=== PATIENT | male | born 1995 | race Caucasian/White ===

== ENCOUNTER 2023-04-28 08:42 | Outpatient (CLI) | payer OTHER, SELFPAY ==
--- NOTE | ~2023-04-28 | XR_ITS ---
LUMBAR SPINE INDICATION: Low back pain TECHNIQUE: 3 views lumbar spine COMPARISON: None FINDINGS: No fracture, subluxation or dislocation. No evidence for spondylolysis or spondylolisthesi s. Vertebral bodies and disk spaces are preserved. IMPRESSION: 1: No significant abnormality of the lumbar spine identified. Reviewed, dictated and finalized at location B. CE MANAGER
== END 2023-04-28 08:43 | disposition home or self-care (01) ==
PROVIDERS: PCP Family Medicine; Visit Provider Family Medicine
DX: M54.50 Low back pain, unspecified (principal)
CPT/HCPCS: 72100

== ENCOUNTER 2023-08-04 14:03 | Outpatient (CLI) | payer OTHER, SELFPAY ==
--- NOTE | ~2023-08-04 | XR_ITS ---
XR abdomen obstructive series 08/04/2023 14:36 INDICATION: Abdominal distention TECHNIQUE: KUB COMPARISON: None FINDINGS: Bowel gas pattern is normal. Moderate colonic fecal loading. There is no evidence of free a ir, mass, organomegaly, ascites or obstruction. No abnormal calculi are seen. The bones appear inta ct. IMPRESSION: 1: No acute abdominal abnormality identified. Reviewed, dictated and finalized at location A.
== END 2023-08-04 14:04 | disposition home or self-care (01) ==
LOC: ANHIMG 14:04
PROVIDERS: PCP Family Medicine; Visit Provider Family Medicine
DX: R14.0 Abdominal distension (gaseous) (principal)
CPT/HCPCS: 74019

== ENCOUNTER 2023-08-31 07:11 | Day surgery (SDC) | payer OTHER, SELFPAY ==
[2023-08-08 08:18] VITALS: BMI 21.7
[2023-08-21 09:19] VITALS: BMI 22.4
[2023-08-31 07:47] VITALS: BP 137/70; PULSE 73; RESP 18; TEMP 36.8; O2SAT 100; BMI 21.5
[2023-08-31] MEDS: LACTATED RINGERS 1,000 ML 150 ML IV CONT (07:54)
--- NOTE | 2023-08-31 08:26 | P.PNAN_ITS ---
Anes - Initial Pre Proc Eval Procedure: Operation Date: 08/31/23 09:00 Proposed Procedures p Diagnostic Colonoscopy - Gael Prince MD Date/Time: 08/31/23 08:26 Surgeon: Gael Prince MD Pre Op Diagnosis: Change in Bowel Habits, ABD Pain, Hemorrhage-Anus Patient Data Age: 27 Gender: M Height: 1.85 m Weight: 74.2 kg Last Vital Signs Temp 36.8 C 08/31/23 07:47 Pulse 73 08/31/23 07:47 Resp 18 08/31/23 07:47 BP 137/70 08/31/23 07:47 Pulse Ox 100 08/31/23 07:47 O2 Del Method Room Air 08/31/23 07:47 Allergies Allergy/AdvReac Type Severity Reaction Status Date / Time amoxicillin Allergy Unknown Hives / Verified 08/31/23 07:47 Red Face clavulanic acid Allergy Unknown Hives / Verified 08/31/23 07:47 Red Face Home Medications Medication Instructions Recorded Confirmed Type No Home Medications 08/31/23 08/31/23 History Patient hx anesthesia problems: none Family hx anesthesia problems: none Results Review: All pre-operative results and documents have been reviewed as part of the pre- operative evaluation. [facility] Past Medical History Medical History Anxiety Conjunctivitis Encounter for general adult medical examination without abnormal findings Family History Family History Mother Thyroid disorder Grandparent Heart disease Social History Social History Social History: Smoking status: Never smoker Second hand tobacco smoke exposure: No Alcohol intake: current Alcohol use details: occasional Substance use: current Substance use type: marijuana Last use: recreational Lack of Transportation: No Lack of Food: Never True Current Housing: I Have Housing Concerned About Future Housing: No Difficulty Paying Gas/Electric Bills: No Difficulty Paying for Meds: No Currently Unemployed: No Education: Decline to Answer Difficulty w/ Childcare or Family Care: No Living arrangements: with family Occupation/Education: occupation Gender identity (if verbalized by the patient): Male Sexual Orientation (if Verbalized by the Patient): Straight or Heterosexual Spiritual care concerns: No Anes - Eval Final PreProcedure Day of Procedure 08/31/23 08:26 Patient weight: normal Heart: regular rate and rhythm Lungs: clear to auscultation Airway: Mallampati scale class II Neurological: alert and oriented Last oral intake: >/= 8 hours ASA classification: I Emergent: no Anesthetic plan: proceed Anesthesia type and monitoring: general GIVS and standard monitoring Results Review: All pre-operative results and documents have been reviewed as part of the pre- operative evaluation. Informed Consent: The patient's anesthetic plan and its attendant risks and benefits were discussed with the patient/family/POA. Questions were solicited and answers provided to the satisfaction of the patient/family/POA.
--- NOTE | 2023-08-31 08:29 | PM.HPGS ---
History of Present Illness History of Present Illness Consent: Risks, benefits, and alternatives have been discussed and questions answered. Patient agrees to proceed with procedure. Chief complaint: Change in Bowel Habits, ABD Pain, Hemorrhage-Anus Narrative: Aramis Kelsey is a 27 year old male presents for colonoscopy. Patient reports a rather atypical left upper quadrant discomfort that occurs intermittently. Not related to diet or bowel movements. Patient notes occasional bright red blood per rectum. He has noticed occasional narrowed stools. Patient denies any weight loss. For this reason referred for colonoscopy to assess more thoroughly. Review of Systems Review of Systems: All systems reviewed & are unremarkable except as noted in HPI and below PMFSH Past Medical History Medical History Anxiety Conjunctivitis Encounter for general adult medical examination without abnormal findings Family History Family History Mother Thyroid disorder Grandparent Heart disease Social History Social History Social History: Smoking status: Never smoker Second hand tobacco smoke exposure: No Alcohol intake: current Alcohol use details: occasional Substance use: current Substance use type: marijuana Last use: recreational Lack of Transportation: No Lack of Food: Never True Current Housing: I Have Housing Concerned About Future Housing: No Difficulty Paying Gas/Electric Bills: No Difficulty Paying for Meds: No Currently Unemployed: No Education: Decline to Answer Difficulty w/ Childcare or Family Care: No Living arrangements: with family Occupation/Education: occupation Gender identity (if verbalized by the patient): Male Sexual Orientation (if Verbalized by the Patient): Straight or Heterosexual Spiritual care concerns: No Meds Home Medications and Allergies Home Medications Medication Instructions Recorded Confirmed Type No Home Medications 08/31/23 08/31/23 History Allergies Allergy/AdvReac Type Severity Reaction Status Date / Time amoxicillin Allergy Unknown Hives / Verified 08/31/23 07:47 Red Face clavulanic acid Allergy Unknown Hives / Verified 08/31/23 07:47 Red Face Vital Signs Vital Signs - 24 hr 08/31/23 07:47 Temperature 98.2 F Pulse Rate 73 Respiratory Rate 18 Blood Pressure 137/70 Pulse Oximetry 100 Oxygen Delivery Room Air Exam Narrative: Physical exam reveals patient to be alert. Vital signs stable. HEENT exam is unremarkable. Patient is anicteric. Lungs are clear to auscultation and to percussion extra sounds. Abdomen bowel sounds are present soft nontender with no organomegaly. Digital exam rectal normal. Assessment and Plan Assessment and plan (1) Rectal bleeding: Code(s): K62.5 - Hemorrhage of anus and rectum Status: Acute Assessment and Plan: No bleeding for this reason colonoscopy is advised. Fiber supplementation suggested for possible hemorrhoidal bleeding. (2) Abdominal pain: Qualifiers: Abdominal location: left lower quadrant Qualified Code(s): R10.32 - Left lower quadrant pain Code(s): R10.9 - Unspecified abdominal pain Status: Acute Assessment and Plan: Described rather atypical left upper quadrant pain that occurs intermittently. Colonoscopy requested. Etiology of his pain remains uncertain.
[2023-08-31 09:37] VITALS: BP 149/57; PULSE 112; RESP 16; O2SAT 100
[2023-08-31 09:47] VITALS: BP 126/70; PULSE 75; RESP 16; O2SAT 99
[2023-08-31 09:57] VITALS: BP 119/72; PULSE 64; RESP 16; O2SAT 100
--- NOTE | 2023-08-31 10:00 | WPDANESPN ---
Anes - Prog Note Post-Op Date/Time: 08/31/23 10:00 Cardiovascular status: normal Respiratory status: normal Airway patency: baseline Mental status: baseline Post-Op hydration status: normal Vital Signs: Last Vital Signs Temp 36.8 C 08/31/23 07:47 Pulse 112 H 08/31/23 09:37 Resp 16 08/31/23 09:37 BP 149/57 H 08/31/23 09:37 Pulse Ox 100 08/31/23 09:37 O2 Del Method Room Air 08/31/23 09:37 Pain Score (VAS): 0/10 I/O: Intake & Output 08/30/23 08/31/23 08/31/23 23:59 07:59 15:59 Intake Total 400 Balance 400 Patient Feedback: Patient satisfied with anesthetic care.
== END 2023-08-31 10:09 | disposition home or self-care (01) ==
PROVIDERS: PCP Family Medicine; Visit Provider Internal Medicine Gastroenterology
PROC: 0DJD8ZZ Inspection of Lower Intestinal Tract, Via Natural or Artificial Opening Endoscopic (ICD-10-PCS; CPT 45378; principal; 2023-08-31 09:00)
DX: K62.5 Hemorrhage of anus and rectum (principal); R19.4 Change in bowel habit; R10.12 Left upper quadrant pain; K64.8 Other hemorrhoids
CPT/HCPCS: 45378

== ENCOUNTER 2023-08-31 07:42 | Outpatient (NON) | payer OTHER, SELFPAY | END 2023-08-31 07:43 | disposition home or self-care (01) | PROVIDERS: PCP Family Medicine; Visit Provider Internal Medicine Gastroenterology | DX: R19.4 Change in bowel habit (principal) | CPT/HCPCS: 88305 ==